=== PATIENT | female | born 1955 | race Caucasian/White ===

== ENCOUNTER 2017-02-02 03:55 | Inpatient (IN) | payer OTHER ==
[2017-02-02] VITALS (8 sets, daily range): BP systolic 108–123; BP diastolic 50–80; PULSE 68–119; RESP 14–20; O2SAT 95–97
[~2017-02-02] VITALS: Ht 162.6 cm; Wt 112.7 kg
[~2017-02-02 03:55] MED LIST: ASCO100089 PO; ASPI-973 PO; ATOR40TA69 PO; CARV6.252 PO; CHOL100045 PO; CYAN500 PO; DICL75TA6; DOCU250C2 PO; FERR-83 PO; FOLI0.4T2 PO; LISI2.5T PO; MAGN100T5 PO; OMEP20CA11 PO; OXYC-530 PO; SENN-133 PO; TRAM50TA2 PO
--- NOTE | 2017-02-02 04:18 | ED.REPORT ---
HPI-Abd Pain F 40 and Over Date of Service Feb 02, 2017 ED Provider: Cm Neves MD Pt is a 62 y/o female with a history of a bowel obstruction and pacemaker insertion who presents to the ED c/o vomiting onset yesterday. She thought she was just had the flu, but today she started throwing up every 3 hours. She states she had been throwing up black-looking emesis, and then clear bile. Additional symptoms include abdominal pain. Pt has not had a BM for two days, and usually has at least one BM per day. Nursing Notes Stated Complaint: VOMITING Chief Complaint: Female Abdominal Pain Nursing Notes Reviewed: Yes Allergies: Coded Allergies: No Known Allergies (Verified Allergy, Unknown, 02/02/17) Scheduled Ascorbic Acid (Vitamin C) 1,000 Mg Tab.chew 1,000 MG PO DAILY Aspirin (Aspirin) 81 Mg Tablet 81 MG PO DAILY Atorvastatin Calcium (Atorvastatin Calcium) 40 Mg Tablet 40 PO HS Carvedilol (Carvedilol) 6.25 Mg Tablet 6.25 PO BID Cholecalciferol (Vitamin D3) (Vitamin D) 1,000 Unit Capsule 1,000 UNIT PO BID Cyanocobalamin (Vitamin B12) 500 Mcg Tablet 1,000 MCG PO DAILY Diclofenac ER (Diclofenac ER) 75 Mg Tablet 75 BID Ferrous Sulfate (Ferrous Sulfate) 325 Mg Tablet 325 MG PO DAILY Folic Acid (Folic Acid) 0.4 Mg Tablet 0.4 MG PO DAILY Lisinopril (Lisinopril) 2.5 Mg Tablet 2.5 PO MORNING Omeprazole (Omeprazole) 20 Mg Capsule.dr 20 MG PO BID Scheduled PRN Docusate Sodium (Docusate Sodium) 250 Mg Capsule 250 MG PO DAILY PRN PRN For Constipation Sennosides (Senna) 8.6 Mg Tablet 8.6 MG PO DAILY PRN PRN For Constipation Tramadol (Tramadol) 50 Mg Tablet 50 MG PO Q6H PRN PRN For Pain oxyCODONE (oxyCODONE) 5 Mg Tablet 5 MG PO Q4H PRN PRN For Moderate Pain Miscellaneous Medications Magnesium Amino Acid Chelate (Magnesium) 100 Mg Tablet 200 MG PO General Time Seen by MD: 04:17 Chief Complaint Vomiting severe Hx Obtained From: Patient Arrived By: Walk-in Sudden in Onset?: No Onset Occurred: 3 days ago Symptom Duration: Constant Quality: Painful Severity: Current: Moderate Severity: Maximum: Severe Recent Healthcare: No recent doctor visit, No recent hospitalization Similar Sx Previous: No Past Medical History Past Medical History Previous bowel obstruction Prediabetes Cardiomyopathy Reports: Hyperlipidemia Past Surgical History Reports: Appendectomy, Cholecystectomy, Hysterectomy Reports: Pacemaker insertion, Tubal ligation Smoking History Never Smoker Social History Alcohol Use: "Social" Drug Use: Denies drug use Occupation lives alone Ambulatory Status Independent Review of Systems Constitutional: Denies: Chills, Fever Respiratory: Denies: Non-productive cough, Prod cough, clear, Shortness of breath Cardiovascular: Denies: Chest pain GI: Reports: Abdominal pain, Nausea, Vomiting Musculoskeletal: Denies: Back pain, Neck pain Complete sys rev & neg: except as marked. Physical Exam Vital Signs Vital Signs (First) Date Time Temp Pulse Resp B/P Pulse Ox O2 Delivery O2 Flow Rate FiO2 02/02/17 04:02 36.5 119 16 113/80 95 Room Air Initial VS: Reviewed Head / Eyes: Atraumatic, Normocephalic Neck: Supple, Full range of motion Extremities: Vascular intact, Neuro intact, No swelling, No tenderness Skin: Warm, Dry, No cyanosis Neurologic: Alert, Oriented, Nonfocal Psychiatric: Mood/affect normal, Behavior normal, Normal thought content General/Constitutional: Awake, Alert Moderately dry looking Respiratory / Chest: Atraumatic, Breath sounds NL, Breath sounds = bilat, No respiratory distress Cardiovascular: Heart rate NL, Regular rhythm, Heart sounds NL Abdomen: Soft, BS normoactive Tenderness/Guarding/Rebound: Positive: Tender LLQ... Back: Full range of motion, Non-tender Interpretation & Diagnostics Lab Results Interpretation Result Diagram: 02/02/17 04202/02/17 042 Test 02/02/17 04:20 White Blood Count 10.3th/mm3 (3.8-10.1) Red Blood Count 4.49mil/mm3 (3.90-5.20) Hemoglobin 13.4g/dL (12.0-15.6) Hematocrit 39.9% (35.0-46.0) Mean Corpuscular Volume 88.9fL (81-100) Mean Corpuscular Hemoglobin 29.8pg (27.0-35.0) Mean Corpuscular Hemoglobin Concent 33.6% (32.0-37.0) Red Cell Distribution Width 13.5% (12.3-15.4) Platelet Count 284bil/L (150-400) Neutrophils (%) (Auto) 70.9% (40-74) Lymphocytes (%) (Auto) 9.7% (14-46) Monocytes (%) (Auto) 18.6% (4-12) Eosinophils (%) (Auto) 0.4% (0-5) Basophils (%) (Auto) 0.3% (0-3) Prothrombin Time 10.8sec (8.1-12.5) Prothromb Time International Ratio 1.01ratio Sodium Level 137mEq/L (134-144) Potassium Level 4.6mEq/L (3.5-5.2) Chloride Level 97mEq/L (97-108) Carbon Dioxide Level 20mmol/L (18-29) Blood Urea Nitrogen 25mg/dL (8-27) Creatinine 0.96mg/dL (0.57-1.00) Estimat Glomerular Filtration Rate 85mL/min (>59) Glucose Level 166mg/dL (60-99) Lactic Acid Level 2.0mmol/L (0.4-2.0) Calcium Level 9.7mg/dL (8.5-10.1) Magnesium Level 2.1mg/dL (1.6-2.6) Total Bilirubin 0.9mg/dL (0.0-1.2) Aspartate Amino Transf (AST/SGOT) 23U/L (0-50) Alanine Aminotransferase (ALT/SGPT) 24U/L (0-32) Alkaline Phosphatase 83U/L (25-165) Total Protein 8.5g/dL (6.4-8.4) Albumin 4.6g/dL (3.4-5.0) Lipase 17U/L (13-60) ECG Interpretation ECG Interpretation: Atrial-sensed ventricular-paced complexes, rate 90 Time: 04:40 Interpreted by: ED physician CT Abd / Pelvis Interpretation Small bowel obstruction present. Interpretation / Wet Read by: Wet read ED physician Re-Eval/Medical Decision Med Decision/Clinical Course 62-year-old presents with small bowel obstruction about a year out from bowel obstruction that required surgery, including a partial colectomy colostomy and then a takedown colostomy. She is not vomiting actively and having moderate pain now controlled, and has relatively benign exam and lab workup. CT reveals a small bowel obstruction mid small bowel with a transition point. Admitted to the medicine service with consultation surgery. Transported in stable condition. Source of Hx: Old records Re-Evaluation/Progress : Time of Eval: 06:18 Re-Evaluation/Progress Note: Patient rechecked. Discussed plan for discharge. Patient understands and agrees with plan. F/U instructions and RTER warnings given. All questions addressed at this time. Consultation : Referral / Consult Name: Arturo Dubon MD Consulted With: Hospitalist Call Returned at: 06:08 Felling Machine Operator: Will see patient, Agrees with plan, Accepts admit Note: Discussed pt's case with hospitalist, Dr. Dubon. He accepts admission. Counseled Regarding: Diagnosis, Lab results, Need for admission Discharge & Departure Primary Impression: Small bowel obstruction Disposition: ADMITTED TO HOSPITAL Discharge Condition All VS Reviewed: Yes Condition: Stable Referrals: Bel Braga MD (PCP) Scribe Attestation Portions of this note were transcribed by Annmarie Brown. I, Dr. Neves, personally performed the history, physical exam and medical decision-making; I reviewed and confirmed the accuracy of the information in the transcribed note. copies to: Bel Braga MD, Christopher W MD Feb 02, 2017 04:18 Annmarie Brown Feb 02, 2017 04:27
[2017-02-02] MEDS ORDERED: 0.9% Sodium Chloride 1,000 ML IV ONE (04:24)
[2017-02-02] MEDS ORDERED: Ondansetron 2 mg/mL 2 mL Inj IVPUSH ONE (04:25)
[2017-02-02] MEDS ORDERED: HYDROmorphone 1 mg/mL Inj IVPUSH PRN ×2 (04:25→06:40)
[2017-02-02] MEDS ORDERED: Pantoprazole 4 mg/mL 10 mL Inj IVPUSH ONE (04:25)
[2017-02-02 04:35] LABS: BASOPHILS % (AUTO) 0.3 % (0-3); EOSINOPHILS % (AUTO) 0.4 % (0-5); MONOCYTES % (AUTO) 18.6 % (4-12); Mean Corpuscular Hemoglobin 29.8 pg (27.0-35.0); Mean Corpuscular Volume 88.9 fL (81-100); NEUTROPHILS % (AUTO) 70.9 % (40-74); Platelet Count 284 bil/L (150-400)
[2017-02-02 04:47] LABS: INR 1.01 ratio
[2017-02-02] MEDS ORDERED: HYDROmorphone 0.5 mg/0.5 mL iSecure Syringe IVPUSH PRN (04:50)
[2017-02-02 05:00] LABS: Magnesium 2.1 mg/dL (1.6-2.6)
[2017-02-02] MEDS ORDERED: Lactated Ringer's 1,000 ML IV SCH (06:38)
[2017-02-02] MEDS ORDERED: Alum-Mag Hydrox-Simeth 30 mL Suspension PO PRN ×2 (06:40→13:05)
[2017-02-02] MEDS: Ondansetron 2 mg/mL 2 mL Inj IVPUSH PRN ×3 (07:14→16:27)
--- NOTE | 2017-02-02 07:50 | NUR ---
Admit Pt admitted to [facility] room 1025 at 0750. Pt A&Ox3. BROWN. Denies pain and nausea at this time. Bowel tones decreased. Pt unable to pass gas. Pt states she feels light headed when she stands Instructed pt to use the call light when ambulating. Pt oriented to room and call light. Admit RN to do admit. Hourly rounding and care continues.
--- NOTE | 2017-02-02 12:19 | DRSVH ---
PROCEDURE: CT ABDOMEN AND PELVIS WITH CONTRAST ([id number]) INDICATIONS: nausea, vomiting pain, remote partial colectomy TECHNIQUE: After the administration of intravenous contrast, 5 mm thick sections acquired from the diaphragm to the symphysis. 5 mm coronal and sagittal reformats were acquired. For radiation dose reduction, the following was used: automated exposure control, adjustment of mA and/or kV according to patient corinna sequeira. COMPARISON: [facility], CT, CT ABD PELVIS W CON, 09/13/2015, 14:33. FINDINGS: Image quality: Excellent. ABDOMEN: Lung bases: 3 mm pleural-based left lower lobe nodule is present, unchanged compared to 09/13/15. Hear t size is normal. Solid organs: Liver is mildly enlarged. The spleen has normal in size. There is a 17 mm AP by 26 mm transverse focus along the posterior inferior right hepatic lobe seen on series 2 image 20. This was not present on prior exam. Hounsfield units measure 30. Gallbladder has been removed. There is minima l blurred ductal dilation suspected to be entry level sales representative of cholecystectomy and appearance is unchang ed. Pancreas enhances normally. No adrenal nodules. Kidneys demonstrate normal size and enhancement , without hydronephrosis. Peritoneum and bowel: There are moderately dilated fluid filled loops of small bowel within the abdom en and pelvis. There is a herniated loop of what appears to be colon within a left mid abdominal verna ia. No proximal large bowel colonic obstruction. Surgical changes reflecting partial colectomy are no ernestina. Nodes and vessels: No retroperitoneal or mesenteric adenopathy by size criteria. Aorta and inferior vena cava are normal in size. Miscellaneous: No ventral hernias. PELVIS: Genitourinary: Bladder wall thickness is normal. Miscellaneous: No inguinal hernias or adenopathy. Bones: No suspicious bony lesions. No vertebral body compression fractures. IMPRESSION: 1. Partial small bowel obstruction without definite transition point. 2. Low attenuation hepatic focus as described above. Hounsfield units are slightly greater than expec ernestina for a simple cyst and appearance is new compared to prior exam. Focal ultrasound is recommended f or additional evaluation of this lesion, as etiology is indeterminate on the basis of this examinatio n. Dictated by: Zohreh Zapata M.D. on 02/02/2017 at 12:09 Approved by: Zohreh Zapata M.D. on 02/02/2017 at 12:17
--- NOTE | 2017-02-02 13:03 | NUR ---
GI/Gu Pt up to [facility]. Pt had episode of nausea. Zofran given. Pt passing gas, but no BM. Pt voided 700cc. UA sent. notified. Urbina not placed per ED orders as pt is voiding. Will continue to monitor.
[2017-02-02] MEDS ORDERED: Polyethylene Glycol (PEG) 17 Gm Powder PO PRN (13:05)
[2017-02-02] MEDS ORDERED: Pantoprazole 4 mg/mL 10 mL Inj IVPUSH SCH (13:05)
--- NOTE | 2017-02-02 13:19 | PCM.HPMED ---
Subjective Date of Service Feb 02, 2017 Primary Provider: Admitting Physician: Arturo Dubon MD Primary Care Physician: Bel Braga MD Attending Physician: Arturo Dubon MD Chief Complaint: Abdominal pain, nausea, vomiting History of Present Illness: 62 year old female with past medical history as noted below and notable for multiple abdominal surgeries as well as prior history of small bowel obstruction presents with report of acute onset of nausea, vomiting and abdominal pain about 24 hours prior to her presentation. She did not present earlier hoping that her symptoms will resolve but earlier this morning she had a dark black emesis which made her concerned about possible bleeding and so she presented to the ED. She says she has not had any further vomiting since then. She has not had a bowel movement for 2 days. She had not had any flatus for about 24 hours either. In addition to the above she also reports feeling some "dizziness" and unsteadiness when she stands up as well as some weight gain over the past year or so but otherwise denies any other new issues/complaints. In the ED she has received IV Zofran and Dilaudid. Review of Systems: Constitutional: Negative, except as otherwise mentioned in the history above. Ophthalmologic: Negative, except as otherwise mentioned in the history above. Cardiovascular: Negative, except as otherwise mentioned in the history above. Respiratory: Negative, except as otherwise mentioned in the history above. Gastrointestinal: Negative, except as otherwise mentioned in the history above. Genitourinary: Negative, except as otherwise mentioned in the history above. Musculoskeletal: Negative, except as otherwise mentioned in the history above. Neurological: Negative, except as otherwise mentioned in the history above. Psychiatric: Negative, except as otherwise mentioned in the history above. Hematologic/Lymphatic: Negative, except as otherwise mentioned in the history above. Allergic/Immunologic: Negative, except as otherwise mentioned in the history above. Allergies Coded Allergies: No Known Allergies (Verified Allergy, Unknown, 02/02/17) Home Medications Ferrous Sulfate 325 Mg PO DAILY 30 Days Atorvastatin Calcium 40 PO HS Carvedilol 6.25 PO BID Lisinopril 2.5 PO MORNING Aspirin 81 Mg PO DAILY Diclofenac ER 75 BID Tramadol 50 Mg PO Q6H PRN oxyCODONE 5 Mg PO Q4H PRN Magnesium Amino Acid Chelate 1 200 Mg PO HS Docusate Sodium 250 Mg PO HS PRN Omeprazole 20 Mg PO BID Sennosides 8.6 Mg PO BID PRN PMH History of emergent colostomy for benign colonic obstruction. Morbid obesity, BMI 37 Cardiomyopathy with third-degree heart block and pacemaker implant. Hypertension. Hyperlipidemia. Sleep apnea on CPAP. History of chronic narcotic use in the distant past. History of paroxysmal atrial fibrillation. History of iron-deficiency anemia requiring blood transfusions in the past. Previous bowel obstruction Prediabetes Cardiomyopathy Surgical History Takedown of colostomy with colorectal anastomosis Mobilization of splenic flexure. Small bowel resection and anastomosis. Appendectomy, Cholecystectomy, Hysterectomy Pacemaker insertion, Tubal ligation Family History Denies any family history of heart disease Social History Hx Alcohol Use: Yes ("I might have a drink with a meal on Tuesday night") Hx Substance Use: No Hx Tobacco Use: No (quit 35 yrs ago) Smoking Status: Never Smoker Living Arrangement: Alone Exam Vital Signs Vital Sign - Last Date Time Temp Pulse Resp B/P Pulse Ox O2 Delivery O2 Flow Rate FiO2 02/02/17 12:37 36.1 86 16 113/54 96 Room Air General: Alert, Cooperative, No Acute Distress Head: Normal Eyes: PERRLA, EOMI, Scleral Anicteric Nose: Mucous Membr Moist/[place] Mouth: Mucous Membr Moist/[place] Neck: Supple Chest & Lungs: Chest Wall Normal, Clear to auscultation & percussion Cardiovascular: Regular Rate/Rhythm Pulses: NL carotid, radial, femoral, DP, PT Abdomen: Non-tender, Non-distended, Normoactive bowel tones, Soft Extremities: No cyanosis/clubbing/edma bilat Neurological: Grossly Neurologically Intact, Cranial Nerves 2-12 Intact, Normal Speech Lab and Diagnostics Result Diagram: 02/02/1741902/02/17419 X-Rays, CTs and MRIs Date of Service: 02/02/17423 PROCEDURE: CT ABDOMEN AND PELVIS WITH CONTRAST ([id number]) IMPRESSION: 1. Partial small bowel obstruction without definite transition point. 2. Low attenuation hepatic focus as described above. Hounsfield units are slightly greater than expected for a simple cyst and appearance is new compared to prior exam. Focal ultrasound is recommended for additional evaluation of this lesion, as etiology is indeterminate on the basis of this examination. Dictated by: Zohreh Zapata M.D. on 02/02/2017 at 12:09 Approved by: Zohreh Zapata M.D. on 02/02/2017 at 12:17 Assessment & Plan 62 year old female with past medical history as noted below and notable for multiple abdominal surgeries as well as prior history of small bowel obstruction presents with report of acute onset of nausea, vomiting and abdominal pain # Acute abdominal pain, nausea and vomiting due to acute small bowel obstruction. Present on admission. Ongoing - Continue NPO - Continue supportive care including IVF, anti-emetics, and pain control with IV Morphine as needed - Encourage ambulation - If clinically not improved/resolving will consider surgery consult in AM # Low attenuation hepatic focus noted on CT, as noted above. - Check ultrasound as recommended by radiology # Report of some dizziness and unsteadiness with standing, present on admission. - Possibly due to orthostatic hypotension - IVF - PT consult in AM # Possible acute urinary tract infection (UTI), present on admission - Reports some polyuria recently - Will start empiric Ceftriaxone given somewhat symptomatic - Followup final culture result # History of hypertension. Currently stable - Hold oral BP meds until no longer NPO - Cover with prn IV Labetalol if needed # Pre-diabetes reported by patient - ISS while inpatient # Morbid obesity, BMI 37 - Encourage life style modification # Cardiomyopathy with third-degree heart block and pacemaker implant. Present on admission. - Presumed stable # Hyperlipidemia. - Resume home statin when no long NPO # Sleep apnea - Home CPAP setting # History of paroxysmal atrial fibrillation. - Currently in sinus - Continue with ASA when no longer NPO Expected length of hospital stay is greater than 2 midnights and likely 2-3 days GI Prophylaxis: Proton Pump Inhibitor VTE Prophylaxis: Sub-Q Heparin (Unfractionated) Resuscitation Status: DNR/DNI:Do Not Resuscitate/Intubate (discussed and verified with the patient) Time spent 60 min Loc Oliveros Feb 02, 2017 13:19
[2017-02-02] MEDS: Dextrose 5% 0.45% NaCl 1,000 ML IV SCH (13:37)
[2017-02-02 13:40] LABS: APPEARANCE,URINE HAZY (CLEAR,HAZY); COLOR,URINE STRAW (YELLOW); OCCULT BLOOD,URINE TRACE (NEGATIVE); PH,URINE 5.5 (5.0-8.0); UROBILINOGEN,URINE NORMAL (NORMAL)
--- NOTE | 2017-02-02 13:47 | NUR ---
Social Work: Initial Assessment/Readiness for D/C/Multidisciplinary Rounds D: EMR reviewed. Please see Initial Assessment linked to this note for more information. Pt is a 62 year old female admitted [place] for SBO per H&P. Pt's insurance is [employer]. PCP is Bel Braga MD. Pt discussed in multidisciplinary rounds, pt is likely to discharge home, no needs. No SW orders received at this time. SW met with pt and friend Tricia at bedside to conduct initial assessment. Pt was alert and oriented x3. SW explained role and wrote phone number on white board. SW provided [facility] Discharge Planning Checklist and encouraged pt to contact SW for any discharge planning questions. Tricia is pt's designated d/c planning contact, . Pt lives at home alone in [place]. Pt is independent with all ADLs at baseline. Pt works at [employer]. Pt uses no DME at baseline, but has a walker available for use at discharge. Pt drives. Pt has history of [facility] PT last year and would be agreeable to using this company again if needed. Pt has no SNF history. Pt has no LTC or VA benefits. Pt has no Advance Directive on file, SW requested copy of pt's living will. Pt agreeable. Pt is likely to d/c home with friend to transport via POV. SW will continue to follow. A: Pt who is independent at baseline and has the capacity for self-care. P: Pt anticipated to discharge home with friend to transport via POV. No SW needs identified, no MD orders received at this time. SW will continue to follow for needs until time of discharge. STEPH Nichols Addendum: 02/02/17 at 1349 by SHERRY RIOS Amended: Links added.
[2017-02-02] MEDS: cefTRIAXone Inj 2,000 MG in Dextrose 5% Minibag Plus 50 ML IV SCH (16:18)
[2017-02-02] MEDS: Insulin Human REGular 300 Unit/3 mL Inj SUBQ SCH ×2 (16:55→21:13)
[2017-02-03] VITALS (7 sets, daily range): BP systolic 95–148; BP diastolic 50–84; PULSE 63–100; RESP 16–20; O2SAT 95–96
[2017-02-03] MEDS: Dextrose 5% 0.45% NaCl 1,000 ML IV SCH ×2 (02:36→16:46)
--- NOTE | 2017-02-03 02:55 | NUR ---
Pain/activity Pt reported that 1mg IV Morphine "did not really touch the pain." Pt reporting pain up to 4/10 and was given full dose of Morphine 2mg IVP. Pt reported this to be effective as she is not having pain now. Pt up to [facility], reporting feeling overall weak and needing SBA. Pt has PT eval ordered for morning. SCDs are on. Pt is passing gas and has denied nausea so far this shift.
[2017-02-03 06:28] LABS: Mean Corpuscular Hemoglobin 29.2 pg (27.0-35.0); Mean Corpuscular Volume 91.5 fL (81-100)
[2017-02-03] MEDS ORDERED: ASCO500C6 PO (07:28)
[2017-02-03] MEDS: Insulin Human REGular 300 Unit/3 mL Inj SUBQ SCH ×3 (07:30→20:16)
[2017-02-03] MEDS ORDERED: Dextrose 10% 250 ML IV PRN (09:15)
--- NOTE | 2017-02-03 15:01 | PCM.PNMED ---
Subjective Date of Service Feb 03, 2017 Subjective still having abdominal pain. No BM but having some flatus. No nausea/vomiting Exam Vital Signs Vital Sign - Last Date Time Temp Pulse Resp B/P Pulse Ox O2 Delivery O2 Flow Rate FiO2 02/03/17 12:39 64 101/66 02/03/17 12:12 36.6 16 96 Room Air Intake and Output 02/02/17 02/02/17 02/03/17 Cumulative From/Thru 15:00 23:00 07:00 02/02/17 04:02 - 02/03/17 05:51 Intake Total 923 ml 817 ml 1740 ml Output Total 1100 ml 350 ml 1450 ml Balance -177 ml 467 ml 290 ml Intake Oral 0 ml 0 ml 0 ml IV Total 923 ml 817 ml 1740 ml Output Urine Total 1100 ml 350 ml 1450 ml # Bowel Movements 0 0 Exam General: Alert, Cooperative, No Acute Distress Head: Normal Eyes: Scleral Anicteric Nose: Mucous Membr Moist/[place] Mouth: Mucous Membr Moist/[place] Neck: Supple Chest & Lungs: Chest Wall Normal, Clear to auscultation bilat Cardiovascular: Regular Rate/Rhythm Abdomen: Mildly tender, Non-distended, Normoactive bowel tones, Soft Extremities: No cyanosis/clubbing/edema bilat Neurological: Grossly Neurologically Intact, Normal Speech Psych: Calm, appropriate IVs and Medications Medications Reviewed: Medications were reviewed in detail Lab and Diagnostics Result Diagram: 02/03/17 0540 02/03/17 0540 X-Rays, CTs and MRIs Date of Service: 02/02/17 0424 PROCEDURE: CT ABDOMEN AND PELVIS WITH CONTRAST ([id number]) IMPRESSION: 1. Partial small bowel obstruction without definite transition point. 2. Low attenuation hepatic focus as described above. Hounsfield units are slightly greater than expected for a simple cyst and appearance is new compared to prior exam. Focal ultrasound is recommended for additional evaluation of this lesion, as etiology is indeterminate on the basis of this examination. Dictated by: Zohreh Zapata M.D. on 02/02/2017 at 12:09 Approved by: Zohreh Zapata M.D. on 02/02/2017 at 12:17 Assessment & Plan 62 year old female with past medical history as noted below and notable for multiple abdominal surgeries as well as prior history of small bowel obstruction presents with report of acute onset of nausea, vomiting and abdominal pain # Acute abdominal pain, nausea and vomiting due to acute small bowel obstruction. Present on admission. Ongoing - Continue NPO - Continue supportive care including IVF, anti-emetics, and pain control with IV Morphine as needed - Encourage ambulation - Surgery consulted. Will followup with recs # Low attenuation hepatic focus noted on CT, as noted above. - Check ultrasound as recommended by radiology # Report of some dizziness and unsteadiness with standing, present on admission. Improving - Possibly due to orthostatic hypotension - IVF - PT consult # Possible acute urinary tract infection (UTI), present on admission - Reports some polyuria recently - Continue empiric Ceftriaxone given somewhat symptomatic - Followup final culture result # History of hypertension. Currently stable - Hold oral BP meds until no longer NPO - Cover with prn IV Labetalol if needed # Pre-diabetes reported by patient - ISS while inpatient # Morbid obesity, BMI 37 - Encourage life style modification # Cardiomyopathy with third-degree heart block and pacemaker implant. Present on admission. - Presumed stable # Hyperlipidemia. - Resume home statin when no long NPO # Sleep apnea - Home CPAP setting # History of paroxysmal atrial fibrillation. - Currently in sinus - Continue with ASA when no longer NPO Dispo: 2-3 days pending resolution of SBO GI Prophylaxis: Proton Pump Inhibitor VTE Prophylaxis: Sub-Q Heparin (Unfractionated) VTE Mechanical Devices: Intermittant Pneumatic CD Resuscitation Status: DNR/DNI:Do Not Resuscitate/Intubate (discussed and verified with the patient) Loc Oliveros Feb 03, 2017 15:01
[2017-02-03] MEDS: Ondansetron 2 mg/mL 2 mL Inj IVPUSH PRN (15:41)
[2017-02-03] MEDS: cefTRIAXone Inj 2,000 MG in Dextrose 5% Minibag Plus 50 ML IV SCH (16:46)
--- NOTE | 2017-02-03 17:07 | DRSVH ---
PROCEDURE: US ABDOMEN, LIMITED ([id number]) INDICATIONS: Low attenuation hepatic focus noted on CT TECHNIQUE: Real-time focused scanning was performed of the abdomen, with image documentation. COMPARISON: [facility], CT, CT ABD PELVIS W CON, 02/02/2017, 5:26. FINDINGS: Liver is diffusely increased in echogenicity. Normal hepatic size. Hypodensity seen on prashant or CT scan involving the peripheral right hepatic lobe is not visualized sonographically and cannot b e assessed. IMPRESSION: CT abnormality within the liver noted on recent examination not visualized sonographicall y and cannot be assessed. If indicated hepatic protocol CT or MRI could be performed for further bernabe racterization. Dictated by: Lior Encarnacion RRA Interpreted: Candace Benitez MD on 02/03/2017 at 16:34 Approved by: Candace Benitez MD, PhD on 02/03/2017 at 17:05
--- NOTE | 2017-02-03 17:28 | CONS ---
[address] [address] CONSULTATION REPORT PATIENT: SAM VARGAS : 1955 MR#: [id number] ADMIT: 02/02/2017 JOB ID: [id number] DATE OF SERVICE: 02/03/2017 CHIEF COMPLAINT: Dr. Oliveros has asked me to see this 62-year-old female with a small bowel obstruction. HISTORY OF PRESENT ILLNESS: The patient presented to the emergency department last night with roughly one day of abdominal pain and emesis and decreased stool output. This morning when I saw her she was still passing a small amount of gas but felt distended and anorexic, though denied pain. She noted that her pain was markedly better following her night here in the hospital with being kept n.p.o. She has a history in August 2015 of undergoing an emergency sigmoid colectomy with left oophorectomy for what was felt to be a colon cancer. It turned out to be likely be diverticulosis with an acellular mucin chronic inflammation identified in the colonic wall. Pathology at that time failed to show any malignancy and it was noted that she had 12 lymph nodes that were negative for malignancy in the specimen. She eventually underwent a takedown of her colostomy in March 2016 with the operative note remarking that she had a couple of enterotomies, including a segmental small bowel resection, along with her colorectal anastomosis. She has done well since and not had any other obstructive symptoms. She did have a preoperative colonoscopy that demonstrated a tubular adenoma but no premalignant polyps. PAST MEDICAL HISTORY: Morbid obesity with a BMI of 37, cardiomyopathy with 3rd degree heart block and pacemaker implant, hypertension, hyperlipidemia, sleep apnea on CPAP, history of paroxysmal atrial fibrillation, status post hysterectomy, status post appendectomy, status post cholecystectomy, status post pacemaker implant. MEDICATIONS: Ferrous sulfate, atorvastatin, carvedilol, lisinopril, aspirin, diclofenac, tramadol, oxycodone p.r.n., DSS, omeprazole, senna p.r.n. SOCIAL HISTORY: Lives alone, ex-smoker in the distant past, negative daily alcohol. FAMILY HISTORY: Noncontributory. REVIEW OF SYSTEMS: Per admission history and physical. PHYSICAL EXAMINATION: Overweight woman appearing quite comfortable. No acute distress. Pulse is in the 60s and 70s. Blood pressure is normal. She is afebrile. Sclerae are clear. Neck is supple. Lungs are clear. Heart sounds are distant but regular. Her BMI is recorded at 42 and she has central obesity with a long midline incision that is well-healed without palpable incisional hernias and no focal tenderness. LABORATORY DATA: White count is 4.7, compared to 10.3 yesterday. Hematocrit is 34, down from 39.9 with hydration. Chemistries are more or less normal with a glucose of 115, with her blood sugar yesterday being 166. Calcium is 8.4. Hemoglobin A1c is 5.9. LFTs are normal. Lipase is 17. I have ordered a CEA which is pending. IMAGING: CT scan: I have reviewed the report and the images, and this definitely is consistent with a small bowel obstruction with distal decompressed small bowel, although the definite transition point is not identified. She does appear to have a small abdominal wall hernia, with a piece of colon in it that was not obstructing, close to the splenic flexure which was taken down. IMPRESSION AND PLAN: A 62-year-old female with a small bowel obstruction. This is partial. We have discussed the natural history of small bowel obstruction. I have recommended that she have medical therapy for 24-48 hours and if it has not has not resolved at that time we should undergo surgery. I recommended a nasogastric tube, but she would prefer not to have this placed, and I will not insist on it given that she is not vomiting anymore. She has a Gastrografin challenge pending and actually feels worse having ingested the Gastrografin, with x-rays pending. I suspect that even if she does show transition of the Gastrografin into her colon, unless her symptoms resolve completely, that she has a persistent small-bowel obstruction and would need to go to the operating room for a lysis of adhesions in the next 2448 hours if she does not improve. General Surgery will follow along.
--- NOTE | 2017-02-03 19:53 | DRSVH ---
PROCEDURE: X-RAY GASTROGRAFIN CHALLENGE, 1 VIEW ABDOMEN INDICATIONS: OBSTRUCTION TECHNIQUE: One view of the abdomen acquired. COMPARISON: None. FINDINGS: Surgical changes and devices: None. Bowel: Bowel gas pattern is normal with oral contrast has transited through the entire small bowel a nd through much of the colon, extending into the rectum. Soft tissues: No suspicious abdominal calcifications. Visualized solid organ contours appear normal in size. Bones: No suspicious bony lesions. IMPRESSION: No sign of bowel obstruction. Dictated by: Tenzin Marcus M.D. on 02/03/2017 at 19:51 Approved by: Tenzin Marcus M.D. on 02/03/2017 at 19:51
--- NOTE | 2017-02-04 02:06 | NUR ---
Activity/Pain Patient up to BSC independently this shift. Denies lightheadedness/dizziness, gait steady. Episodes of loose BM this shift following Gastrografin challenge. States her nausea has completely resolved and she's feeling better now that she's passing stool. Received Morphine 2mg IVP once this shift for c/o abdominal pain rated 4/10. Results effective, resting with eyes closed upon reassessment.
[2017-02-04] MEDS: Insulin Human REGular 300 Unit/3 mL Inj SUBQ SCH ×4 (02:15→20:30)
[2017-02-04 04:18] VITALS: BP 102/60; PULSE 68; RESP 18; O2SAT 95
[2017-02-04] MEDS: Dextrose 5% 0.45% NaCl 1,000 ML IV SCH (04:54)
[2017-02-04 06:27] LABS: Mean Corpuscular Hemoglobin 29.6 pg (27.0-35.0); Mean Corpuscular Volume 91.6 fL (81-100)
[2017-02-04 07:56] VITALS: BP 121/85; PULSE 65; RESP 18; O2SAT 95
--- NOTE | 2017-02-04 09:53 | PCM.PNSURG ---
Subjective Date of Service: Feb 04, 2017 Date of Service: Feb 04, 2017 Visit Information: Reason for Visit SBO Surgery/Surgery Date Post-Op Day # Date of Admission: Feb 02, 2017 at 07:10 Hospital Day #3 s/p PSBO Subjective: Pt reports improved bowel function overnoc with multiple bm's after gg challenge. No vomit since admit, some nausea and general malaise yesterday which has since passed. Some return of LLQ abdominal pain before BM's yesterday pm which has since improved. Postop General: No Shortness of Breath, No Chest Pain Gastrointestinal: No N/V, Passing Stool Postop Activity: Ambulating Independently Objective Objective pleasant obese female in NAD. Appropriately stable VSS. Afebrile. 5k of wbc's which is stable. Vital Sign- Last 8 Hours Date Time Temp Pulse Resp B/P Pulse Ox O2 Delivery O2 Flow Rate FiO2 02/04/17 07:56 36.6 65 18 121/85 95 Room Air 02/04/17 04:18 36.5 68 18 102/60 95 Room Air Intake and Output- Last 8 Hour 02/04/17 Cumulative From/Thru 07:00 02/02/17 04:02 - 02/04/17 05:57 Intake Total 843 ml 2583 ml Output Total 1850 ml Balance 843 ml 733 ml Intake Oral 0 ml 0 ml IV Total 843 ml 2583 ml Output Urine Total 1850 ml # Bowel Movements 3 3 General: Alert, Cooperative, No Acute Distress Lungs: Clear to Auscultation Heart: Exam Unremarkable Abdomen: Soft, Non-distended, Protuberant, Normoactive bowel tones, Other ( Mild LLQ abdominal tenderness without guarding. ) Result Diagram: 02/04/17 0550 02/04/17 0550 Diagnostics: 1. PROCEDURE: US ABDOMEN, LIMITED ([id number]) INDICATIONS: Low attenuation hepatic focus noted on CT FINDINGS: Liver is diffusely increased in echogenicity. Normal hepatic size. Hypodensity seen on prior CT scan involving the peripheral right hepatic lobe is not visualized sonographically and cannot be assessed. IMPRESSION: CT abnormality within the liver noted on recent examination not visualized sonographically and cannot be assessed. If indicated hepatic protocol CT or MRI could be performed for further characterization. 2. post gastrograffin KUB shows passages of contrast into rectum. No dilated loops. Assessment & Plan Impression Partial sbo; appears to be resolving now. possible UTI poa small abdominal wall hernia LUQ Problems: Plan Will adv diet to CLD; with slow advance. Ambulate Continue ceftriaxone If not improving this pm; make NPO p MN for likely or in am for GETACHEW Patient satisfied with plan VTE Prophylaxis: Sub-Q Heparin (Unfractionated) Resuscitation Status: CPR: Attempt Resuscitation (discussed and verified with the patient) Samm An PA-C Feb 04, 2017 09:53
--- NOTE | 2017-02-04 11:13 | DRSVH ---
PROCEDURE: X-RAY ACUTE ABDOMINAL SERIES ([id number]) INDICATIONS: SMALL BOWEL OBSTRUCTION TECHNIQUE: One view chest and two views of the abdomen were acquired. COMPARISON: [facility], CR, XR GASTROGRAF CHALLENG 1VW ABD, 02/03/2017, 17:33. [facility], CT, CT ABD PELVIS W CON, 02/02/2017, 5:26. [facility], CR, XR ABD ACUTE SE [place] 3VW, 09/15/2015, 13:30. FINDINGS: Surgical changes and devices: Stable positioning of dual chamber left cardiac pacemaker. Left flank surgical clips redemonstrated. Chest: Lungs are clear. Heart size is normal. No pleural effusions. No pneumoperitoneum. Abdomen: Residual contrast media seen throughout the course of the colon status post recent CT scan e xtending to the distal colon and rectum. There continues to be mild gaseous distention of small farhat l within the midabdomen with bowel caliber measuring up to 3.8 cm. No pneumatosis or bowel wall thic kening. No pneumoperitoneum. Bones: No suspicious bony lesions. IMPRESSION: Contrast media throughout the colon status post recent Gastrografin challenge. Contrast i s present in the rectum effectively excluding obstruction. Persistent mild gaseous distention of the small bowel may represent a degree of residual adynamic ileus. Dictated by: Lior VILLAREAL Interpreted: Jan Gaston MD on 02/04/2017 at 8:33 Approved by: Jan Gaston M.D. on 02/04/2017 at 11:11
--- NOTE | 2017-02-04 13:33 | PCM.PNSURG ---
Subjective Date of Service: Feb 04, 2017 Date of Service: Feb 04, 2017 Visit Information: Reason for Visit SBO Surgery/Surgery Date Post-Op Day # Date of Admission: Feb 02, 2017 at 07:10 Hospital Day # Subjective: Patient notes increase in LLQ sharp pain noticed during ambulating in booker. No nausea or vomiting after starting CLD this am. Gastrointestinal: No N/V Pain Management: Continued Pain Issues Postop Activity: Other (Not comfortable with ambulation this pm.) Objective Objective morbid obese female in mild distress. Vital Sign- Last 8 Hours Date Time Temp Pulse Resp B/P Pulse Ox O2 Delivery O2 Flow Rate FiO2 02/04/17 07:56 36.6 65 18 121/85 95 Room Air Intake and Output- Last 8 Hour 02/04/17 Cumulative From/Thru 07:00 02/02/17 04:02 - 02/04/17 05:57 Intake Total 843 ml 2583 ml Output Total 1850 ml Balance 843 ml 733 ml Intake Oral 0 ml 0 ml IV Total 843 ml 2583 ml Output Urine Total 1850 ml # Bowel Movements 3 3 General: Alert, Cooperative, No Acute Distress Lungs: Clear to Auscultation Heart: Regular Rate/Rhythm Abdomen: Rebound Tenderness (LLQ), Other (mildly distended. Normoactive bowel sounds. No peritoneal signs. ) Result Diagram: 02/04/17 0550 02/04/17 0550 Assessment & Plan Impression Partial sbo unlikely fully resolved with returning LLQ pain without nausea or vomiting. Problems: Plan Will make NPO simthicone po q6 prn CBC, CMP, lactate Poss OR if continued uncomfortable NGT if increasing n/v Pain Management: Morphine iv push VTE Prophylaxis: Sub-Q Heparin (Unfractionated) Resuscitation Status: CPR: Attempt Resuscitation (discussed and verified with the patient) Samm An PA-C Feb 04, 2017 13:33
--- NOTE | 2017-02-04 13:56 | PCM.PNMED ---
Subjective Date of Service Feb 04, 2017 Subjective Patient had bowel movements last night and abdominal pain improved after Gastrografin challenge .. Started on clear liquid diet today. Exam Vital Signs Vital Sign - Last Date Time Temp Pulse Resp B/P Pulse Ox O2 Delivery O2 Flow Rate FiO2 02/04/17 07:56 36.6 65 18 121/85 95 Room Air Intake and Output 02/03/17 02/03/17 02/04/17 Cumulative From/Thru 14:59 22:59 06:59 02/02/17 04:02 - 02/04/17 05:57 Intake Total 0 ml 843 ml 2583 ml Output Total 400 ml 1850 ml Balance -400 ml 843 ml 733 ml Intake Oral 0 ml 0 ml 0 ml IV Total 843 ml 2583 ml Output Urine Total 400 ml 1850 ml # Bowel Movements 0 3 3 Exam General: Alert, Cooperative, No Acute Distress Head: Normal Eyes: Scleral Anicteric Nose: Mucous Membr Moist/[place] Mouth: Mucous Membr Moist/[place] Neck: Supple Chest & Lungs: Chest Wall Normal, Clear to auscultation bilat Cardiovascular: Regular Rate/Rhythm Abdomen: non tender, Non-distended, Normoactive bowel tones, Soft Extremities: No cyanosis/clubbing/edema bilat Neurological: Grossly Neurologically Intact, Normal Speech Psych: Calm, appropriate IVs and Medications Medications Reviewed: Medications were reviewed in detail Lab and Diagnostics Result Diagram: 02/04/17 0550 02/04/17 0550 X-Rays, CTs and MRIs Date of Service: 02/02/17 0424 PROCEDURE: CT ABDOMEN AND PELVIS WITH CONTRAST ([id number]) IMPRESSION: 1. Partial small bowel obstruction without definite transition point. 2. Low attenuation hepatic focus as described above. Hounsfield units are slightly greater than expected for a simple cyst and appearance is new compared to prior exam. Focal ultrasound is recommended for additional evaluation of this lesion, as etiology is indeterminate on the basis of this examination. Dictated by: Zohreh Zapata M.D. on 02/02/2017 at 12:09 Approved by: Zohreh Zapata M.D. on 02/02/2017 at 12:17 PROCEDURE: X-RAY ACUTE ABDOMINAL SERIES ([id number]) INDICATIONS: SMALL BOWEL OBSTRUCTION TECHNIQUE: One view chest and two views of the abdomen were acquired. COMPARISON: [facility], CR, XR GASTROGRAF CHALLENG 1VW ABD, 2016, 17:33. [facility], CT, CT ABD PELVIS W CON, 02/02/2017, 5:26. [facility], CR, XR ABD ACUTE SERIES 3VW, 09/15/2015, 13:30. FINDINGS: Surgical changes and devices: Stable positioning of dual chamber left cardiac pacemaker. Left flank surgical clips redemonstrated. Chest: Lungs are clear. Heart size is normal. No pleural effusions. No pneumoperitoneum. Abdomen: Residual contrast media seen throughout the course of the colon status post recent CT scan extending to the distal colon and rectum. There continues to be mild gaseous distention of small bowel within the midabdomen with bowel caliber measuring up to 3.8 cm. No pneumatosis or bowel wall thickening. No pneumoperitoneum. Bones: No suspicious bony lesions. IMPRESSION: Contrast media throughout the colon status post recent Gastrografin challenge. Contrast is present in the rectum effectively excluding obstruction. Persistent mild gaseous distention of the small bowel may represent a degree of residual adynamic ileus. Dictated by: Lior Encarnacion RRA Interpreted: Jan Gaston MD on 02/04/2017 at 8: 33 Assessment & Plan 62 year old female with past medical history as noted below and notable for multiple abdominal surgeries as well as prior history of small bowel obstruction presents with report of acute onset of nausea, vomiting and abdominal pain # acute small bowel obstruction. Present on admission. Resolved -had bowel movements last night and abdominal pain improved after Gastrografin challenge . X-ray confirms resolved obstruction -Started on clear liquid diets. Advance as tolerated. - Continue supportive care including IVF, anti-emetics, and pain control with IV Morphine as needed - Encourage ambulation - Surgery consulted. # Low attenuation hepatic focus noted on CT, as noted above. - ultrasound unremarkable. # Report of some dizziness and unsteadiness with standing, present on admission. Improving - Possibly due to orthostatic hypotension # Possible acute urinary tract infection (UTI), present on admission - Reports some polyuria recently - Continue empiric Ceftriaxone given somewhat symptomatic -Urine culture growing Escherichia coli sensitive to ceftriaxone but resistant to fluoroquinolones. Continue ceftriaxone. # History of hypertension. Currently stable - Resume oral BP meds - Cover with prn IV Labetalol if needed # Pre-diabetes reported by patient - ISS while inpatient # Morbid obesity, BMI 37 - Encourage life style modification # Cardiomyopathy with third-degree heart block and pacemaker implant. Present on admission. - Presumed stable # Hyperlipidemia. - Resume home statin when no long NPO # Sleep apnea - Home CPAP setting # History of paroxysmal atrial fibrillation. - Currently in sinus - Continue with ASA when no longer NPO Dispo: Discharge tomorrow GI Prophylaxis: Proton Pump Inhibitor VTE Prophylaxis: Sub-Q Heparin (Unfractionated) VTE Mechanical Devices: Intermittant Pneumatic CD Resuscitation Status: CPR: Attempt Resuscitation (discussed and verified with the patient) Jack Monahan MD Feb 04, 2017 13:56
--- NOTE | 2017-02-04 14:44 | NUR ---
PAIN/AMBULATION Patient c/o 11/29 LLQ abdomen pain. given 2mg MS IVP with good efficacy now 07/30 pain. Early in shift patient denied pain, but after negative gasrto X-ray patient advance to clears and had jello and juice with no immediate issues. Patient then ambulated 50ft but stopped and had acute abdomen pain, and went back to bed.
--- NOTE | 2017-02-04 15:34 | NUR ---
NUTRITION ASSESSMENT: ASSESS: 62YO F admit with SBO, now s/p 3 BM's and improvement in abdominal pain with diet advancement per MD notes. PMHX: Pre-dm per pt report DIET: NPO (x2d). To advance to clears per notes today LABS: Reviewed MEDS: GI: 3 BM 02/04 WEIGHT:112.7kg BMI: 42.6 EST.NEEDS: MORBID OBESITY (25-30kcal/kg AdjBW;1.2-1.5g/kg pro Adj BW) Kcal; 1499-4899 Pro: 80-105g NUTRITION DIAGNOSIS: (1) Inadequate oral intake related to altered GI tract function as evidenced by NPO x 2 days. INTERVENTION: (1) Anticipate timely diet advancement. (2) Will include supplements (glucerna) in diet order as diet advances. MONITOR/EVALUATE: NPO status, GI status, po diet/tolerance. F/U per moderate risk.
[2017-02-04] MEDS: cefTRIAXone Inj 2,000 MG in Dextrose 5% Minibag Plus 50 ML IV SCH (16:42)
[2017-02-04 16:43] VITALS: BP 109/71; PULSE 69; RESP 18; O2SAT 95
[2017-02-04 20:56] VITALS: BP 102/63; PULSE 60; RESP 18; O2SAT 97
[2017-02-04] MEDS ORDERED: MAGNESIUM AMINO ACID CHELATE PO SCH (21:00)
[2017-02-05] MEDS: Insulin Human REGular 300 Unit/3 mL Inj SUBQ SCH ×2 (02:29→08:30)
--- NOTE | 2017-02-05 02:38 | NUR ---
Activity Patient getting up independently in room to BR. Gait steady. Denies lightheadedness/dizziness. Denies any nausea/abdominal pain so far this shift.
[2017-02-05 05:50] VITALS: BP 113/73; PULSE 62; RESP 20; O2SAT 97
[2017-02-05 05:58] LABS: BASOPHILS % (AUTO) 0.8 % (0-3); MONOCYTES % (AUTO) 9.4 % (4-12); Mean Corpuscular Hemoglobin 29.6 pg (27.0-35.0); Mean Corpuscular Volume 90.2 fL (81-100); NEUTROPHILS % (AUTO) 54.5 % (40-74); Platelet Count 220 bil/L (150-400)
[2017-02-05] MEDS ORDERED: Ascorbic Acid 500 mg Tablet PO SCH (08:30)
--- NOTE | 2017-02-05 09:30 | PCM.DIMED ---
Discharge Instructions Date of Service Feb 05, 2017 Dates of Hospitalization Feb 02, 2017 at 07:10 Discharge Diagnosis Discharge Diagnosis # acute small bowel obstruction. Present on admission. Resolved # acute urinary tract infection (UTI), present on admission # History of hypertension. Currently stable # Pre-diabetes reported by patient # Morbid obesity, BMI 37 # Cardiomyopathy with third-degree heart block and pacemaker implant. Present on admission. # Hyperlipidemia. # Sleep apnea # History of paroxysmal atrial fibrillation. Diet Discharge Diet: Heart Healthy Activity Discharge Activity: Limited until seen by PCP Call your provider Call your provider for: Fever or Chills, Shortness of breath, Bleeding, Chest pain, Vomitting, Excessive diarrhea, Weakness (unilateral) Patient Instructions Patient Instructions You were hospitalized due to small bowel obstruction due to suspected adhesion. Obstruction resolved. Please follow-up with PCP in 1-2 weeks and discuss hospitalization. Please come back to emergency room if any symptoms of obstruction which includes abdominal pain, unable to pass stool, nausea/vomiting , abdominal distention. Continue all other medications as usual. Follow-up Provider: Bel Braga MD Follow-up with PCP in: 1 week Jack Monahan MD Feb 05, 2017 09:30
[2017-02-05] MEDS ORDERED: CEPH-512 PO (09:31)
--- NOTE | 2017-02-05 10:36 | NUR ---
Social Work: Discharge/Multidisciplinary Rounds D: EMR reviewed. Pt is on day 3 of hospitalization. Pt discussed in multidisciplinary rounds, and is medically stable for discharge. No SW needs identified. Pt to discharge home with friend Tricia to transport via POV. No discharge needs identified. A: Pt who is independent at baseline. P: Pt to discharge home today with friend Tricia to transport via POV. No discharge needs identified. No MD orders received. STEPH Jose
--- NOTE | 2017-02-05 11:17 | PROG NOTE ---
[address] [address] PROGRESS NOTE PATIENT: SAM VARGAS : 1955 MR#: [id number] ADMIT: 02/02/2017 JOB ID: [id number] DATE: 02/05/2017 SUBJECTIVE: The patients bowel obstruction has resolved. She has had a bowel movement, passing gas, and is quite hungry. OBJECTIVE: Her abdominal exam is benign. PLAN: Her diet will be advanced. She will go home later today.
--- NOTE | 2017-02-05 11:34 | NUR ---
DISCHARGE Patient has no complaints of abdominal pain/nausea or vomiting. Reports last BM was yesterday afternoon. Tolerated regular diet without any issues for breakfast. Reviewed discharge paperwork with patient, including information to take antibiotics for 2 more days for UTI. Patient verbalized understanding. Saline lock IV was removed from Left AC. Dressing applied. Patient got dressed independently. Return to work form given to patient. Awaiting friend to arrive for ride home. Addendum: 02/05/17 at 1228 by AMAURY DURAN RN Patient ambulated off unit with friend @ [id number]. Took all personal belongings with her.
--- NOTE | 2017-02-06 06:56 | PCM.DC.MED ---
Discharge Summary Date of Service Feb 06, 2017 Dates of Hospitalization Date of Hospital Admission Feb 02, 2017 at 07:10 Date of Discharge: Feb 06, 2017 Providers: Admitting Physician: Arturo Dubon MD Primary Care Physician: Bel Braga MD Attending Physician: Jack Cat MD Diagnosis at Time of Discharge Diagnosis at Time of Discharge # acute small bowel obstruction. Present on admission. Resolved # acute urinary tract infection (UTI), present on admission # History of hypertension. Currently stable # Pre-diabetes reported by patient # Morbid obesity, BMI 37 # Cardiomyopathy with third-degree heart block and pacemaker implant. Present on admission. # Hyperlipidemia. # Sleep apnea # History of paroxysmal atrial fibrillation. Consultations surgery Dr. Kathleen Procedures XRay, CTs & MRIs Date of Service: 02/02/17 0424 PROCEDURE: CT ABDOMEN AND PELVIS WITH CONTRAST ([id number]) IMPRESSION: 1. Partial small bowel obstruction without definite transition point. 2. Low attenuation hepatic focus as described above. Hounsfield units are slightly greater than expected for a simple cyst and appearance is new compared to prior exam. Focal ultrasound is recommended for additional evaluation of this lesion, as etiology is indeterminate on the basis of this examination. Dictated by: Zohreh Zapata M.D. on 02/02/2017 at 12:09 Approved by: Zohreh Zapata M.D. on 02/02/2017 at 12:17 PROCEDURE: X-RAY ACUTE ABDOMINAL SERIES ([id number]) INDICATIONS: SMALL BOWEL OBSTRUCTION TECHNIQUE: One view chest and two views of the abdomen were acquired. COMPARISON: [facility], CR, XR GASTROGRAF CHALLENG 1VW ABD, 2016, 17:33. [facility], CT, CT ABD PELVIS W CON, 02/02/2017, 5:26. [facility], CR, XR ABD ACUTE SERIES 3VW, 09/15/2015, 13:30. FINDINGS: Surgical changes and devices: Stable positioning of dual chamber left cardiac pacemaker. Left flank surgical clips redemonstrated. Chest: Lungs are clear. Heart size is normal. No pleural effusions. No pneumoperitoneum. Abdomen: Residual contrast media seen throughout the course of the colon status post recent CT scan extending to the distal colon and rectum. There continues to be mild gaseous distention of small bowel within the midabdomen with bowel caliber measuring up to 3.8 cm. No pneumatosis or bowel wall thickening. No pneumoperitoneum. Bones: No suspicious bony lesions. IMPRESSION: Contrast media throughout the colon status post recent Gastrografin challenge. Contrast is present in the rectum effectively excluding obstruction. Persistent mild gaseous distention of the small bowel may represent a degree of residual adynamic ileus. Dictated by: Lior Encarnacion RRA Interpreted: Jan Gaston MD on 02/04/2017 at 8: 33 Brief History per HPI 62 year old female with past medical history as noted below and notable for multiple abdominal surgeries as well as prior history of small bowel obstruction presents with report of acute onset of nausea, vomiting and abdominal pain about 24 hours prior to her presentation. She did not present earlier hoping that her symptoms will resolve but earlier this morning she had a dark black emesis which made her concerned about possible bleeding and so she presented to the ED. She says she has not had any further vomiting since then. She has not had a bowel movement for 2 days. She had not had any flatus for about 24 hours either. In addition to the above she also reports feeling some "dizziness" and unsteadiness when she stands up as well as some weight gain over the past year or so but otherwise denies any other new issues/complaints. In the ED she has received IV Zofran and Dilaudid. Hospital Course 62 year old female with past medical history as noted below and notable for multiple abdominal surgeries as well as prior history of small bowel obstruction presents with report of acute onset of nausea, vomiting and abdominal pain # acute small bowel obstruction. Present on admission. Resolved -had bowel movements last night and abdominal pain improved after Gastrografin challenge . X-ray confirms resolved obstruction -Started on clear liquid diets. Advanced as tolerated. Tolerated well - Counseled on symptoms of SBO, patient probably has adhesions and at risk of future obstruction. - Surgery consulted. # Low attenuation hepatic focus noted on CT, as noted above. - ultrasound unremarkable. -PCP may consider CT with contrast liver protocol if any concern # Report of some dizziness and unsteadiness with standing, present on admission. Improving - Possibly due to orthostatic hypotension # Possible acute urinary tract infection (UTI), present on admission - Reports some polyuria recently - Treated with Ceftriaxone given somewhat symptomatic -Urine culture growing Escherichia coli sensitive to ceftriaxone but resistant to fluoroquinolones. Prescribed Keflex for 2 more days. # History of hypertension. Currently stable - Resume oral BP meds # Pre-diabetes reported by patient - ISS while inpatient # Morbid obesity, BMI 37 - Encourage life style modification # Cardiomyopathy with third-degree heart block and pacemaker implant. Present on admission. - Presumed stable # Hyperlipidemia. - Resume home statin when no long NPO # Sleep apnea - Home CPAP setting # History of paroxysmal atrial fibrillation. - Currently in sinus Dispo: Discharged home Condition on discharge stable Exam Vital Signs (Last) Date Time Temp Pulse Resp B/P Pulse Ox O2 Delivery O2 Flow Rate FiO2 02/05/17 05:50 36.6 62 20 113/73 97 Room Air Exam General: Alert, Cooperative, No Acute Distress Head: Normal Eyes: Scleral Anicteric Nose: Mucous Membr Moist/[place] Mouth: Mucous Membr Moist/[place] Neck: Supple Chest & Lungs: Chest Wall Normal, Clear to auscultation bilat Cardiovascular: Regular Rate/Rhythm Abdomen: non tender, Non-distended, Normoactive bowel tones, Soft Extremities: No cyanosis/clubbing/edema bilat Neurological: Grossly Neurologically Intact, Normal Speech Psych: Calm, appropriate Test 02/02/17 04:20 02/02/17 12:00 02/03/17 05:40 02/05/17 05:44 Prothrombin Time 10.8sec (8.1-12.5) Prothromb Time International Ratio 1.01ratio Hemoglobin A1c 5.9% (4.8-5.6) Magnesium Level 2.1mg/dL (1.6-2.6) Lipase 17U/L (13-60) Urine Color Straw (YELLOW) Urine Appearance Hazy (CLEAR,HAZY) Urine pH 5.5 (5.0-8.0) Urine Specific [place] 1.020 (1.003-1.035) Urine Protein Negativemg/dL (NEG,TRACE) Urine Glucose (UA) Negativemg/dL (NEGATIVE) Urine Ketones Tracemg/dL (NEGATIVE) Urine Occult Blood Trace (NEGATIVE) Urine Nitrite Positive (NEGATIVE) Urine Bilirubin Negative (NEGATIVE) Urine Urobilinogen Normalmg/dL (NORMAL) Urine Leukocyte Esterase Negative (NEGATIVE) Urine RBC 0-2/hpf (0-2) Urine WBC 6-10/hpf (0-5) Urine Epithelial Cells Occasional/hpf (NONE-MOD) Urine Crystals None seen (NONE SEEN) Urine Bacteria Many/hpf (NONE-FEW) Urine Hyaline Casts Occasional/lpf (NONE) Urine Granular Casts None seen (NONE SEEN) Urine Waxy Casts None seen (NONE SEEN) Urine Red Blood Cell Casts None seen (NONE SEEN) Urine White Blood Cell Casts None seen (NONE SEEN) Urine Mucus None seen (None Seen) Urine Trichomonas None seen (NONE SEEN) Urine Yeast None (NONE SEEN) Urinalysis Comment None Urine Culture Reflexed Indicated Carcinoembryonic Antigen 1.3ng/mL (0.0-4.7) White Blood Count 5.3th/mm3 (3.8-10.1) Red Blood Count 3.99mil/mm3 (3.90-5.20) Hemoglobin 11.8g/dL (12.0-15.6) Hematocrit 36.0% (35.0-46.0) Mean Corpuscular Volume 90.2fL (81-100) Mean Corpuscular Hemoglobin 29.6pg (27.0-35.0) Mean Corpuscular Hemoglobin Concent 32.8% (32.0-37.0) Red Cell Distribution Width 12.6% (12.3-15.4) Platelet Count 220bil/L (150-400) Neutrophils (%) (Auto) 54.5% (40-74) Lymphocytes (%) (Auto) 28.9% (14-46) Monocytes (%) (Auto) 9.4% (4-12) Eosinophils (%) (Auto) 6.0% (0-5) Basophils (%) (Auto) 0.8% (0-3) Sodium Level 141mEq/L (134-144) Potassium Level 3.8mEq/L (3.5-5.2) Chloride Level 104mEq/L (97-108) Carbon Dioxide Level 21mmol/L (18-29) Blood Urea Nitrogen 8mg/dL (8-27) Creatinine 0.67mg/dL (0.57-1.00) Estimat Glomerular Filtration Rate 128mL/min (>59) Glucose Level 104mg/dL (60-99) Lactic Acid Level 1.0mmol/L (0.4-2.0) Calcium Level 8.8mg/dL (8.5-10.1) Total Bilirubin 0.2mg/dL (0.0-1.2) Aspartate Amino Transf (AST/SGOT) 24U/L (0-50) Alanine Aminotransferase (ALT/SGPT) 37U/L (0-32) Alkaline Phosphatase 97U/L (25-165) Total Protein 6.9g/dL (6.4-8.4) Albumin 3.9g/dL (3.4-5.0) Discharge Medications Discharge Medications Ascorbic Acid (Vitamin C) 500 Mg Capsule.er 1,000 MG PO DAILY (Reported) Aspirin (Aspirin) 81 Mg Tablet 81 MG PO DAILY (Reported) Atorvastatin Calcium (Atorvastatin Calcium) 40 Mg Tablet 40 PO HS (Reported) Carvedilol (Carvedilol) 6.25 Mg Tablet 6.25 PO BID (Reported) Cephalexin (Keflex) 500 Mg Capsule 500 MG PO TID Prescribed by: JACK CAT MD Cholecalciferol (Vitamin D3) (Vitamin D) 1,000 Unit Capsule 1,000 UNIT PO BID ( Reported) Cyanocobalamin (Vitamin B12) 500 Mcg Tablet 1,000 MCG PO DAILY (Reported) Diclofenac ER (Diclofenac ER) 75 Mg Tablet 75 BID (Reported) Ferrous Sulfate (Ferrous Sulfate) 325 Mg Tablet 325 MG PO DAILY (Reported) Folic Acid (Folic Acid) 0.4 Mg Tablet 0.4 MG PO DAILY (Reported) Lisinopril (Lisinopril) 2.5 Mg Tablet 2.5 PO MORNING (Reported) Magnesium Amino Acid Chelate (Magnesium) 100 Mg Tablet 200 MG PO HS (Reported) Omeprazole (Omeprazole) 20 Mg Capsule.dr 20 MG PO BID (Reported) As needed Docusate Sodium (Docusate Sodium) 250 Mg Capsule 250 MG PO HS PRN PRN For Constipation (Reported) Sennosides (Senna) 8.6 Mg Tablet 8.6 MG PO BID PRN PRN For Constipation ( Reported) Tramadol (Tramadol) 50 Mg Tablet 50 MG PO Q6H PRN PRN For Pain (Reported) oxyCODONE (oxyCODONE) 5 Mg Tablet 5 MG PO Q4H PRN PRN For Moderate Pain Prescribed by: BARBIE MACDONALD MD Followup Plan Disposition: Home Discharge Diet: Heart Healthy Discharge Activity: Limited until seen by PCP Patient Instructions You were hospitalized due to small bowel obstruction due to suspected adhesion. Obstruction resolved. Please follow-up with PCP in 1-2 weeks and discuss hospitalization. Please come back to emergency room if any symptoms of obstruction which includes abdominal pain, unable to pass stool, nausea/vomiting , abdominal distention. Continue all other medications as usual. Follow-up Provider: Bel Braga MD Follow-up with PCP in: 1 week Time spent 35 minutes reevaluating before and after advancing diet, answered questions copies to: Bel Braga MD, Melaku MD Feb 06, 2017 06:55
== END 2017-02-05 12:15 | disposition home or self-care (01) | DRG 389 ==
LOC: SED 03:55 → OSC 07:10
PROVIDERS: ADMIT Hospitalist; ATTEND Internal Medicine
DX: K56.60 Unspecified intestinal obstruction (principal); I42.9 Cardiomyopathy, unspecified; N39.0 Urinary tract infection, site not specified; E78.5 Hyperlipidemia, unspecified; G47.30 Sleep apnea, unspecified; I10 Essential (primary) hypertension; E66.01 Morbid (severe) obesity due to excess calories; I48.0 Paroxysmal atrial fibrillation; Z66 Do not resuscitate; Z16.23 Resistance to quinolones and fluoroquinolones; B96.20 Unspecified Escherichia coli [E. coli] as the cause of diseases classified elsewhere; Z95.0 Presence of cardiac pacemaker; Z68.37 Body mass index [BMI] 37.0-37.9, adult; Z79.82 Long term (current) use of aspirin; Z90.49 Acquired absence of other specified parts of digestive tract